=== PATIENT | female | born 1950 | race Caucasian/White ===

== ENCOUNTER 2018-04-16 08:13 | Emergency (ER) | payer MEDICARE ==
[~2018-04-16] VITALS: Ht 165.1 cm; Wt 86.0 kg
[~2018-04-16 08:13] MED LIST: ATELVIA PO; CALCIUM600 M1 OR; CITALOPRAM10 MG OR; ETODOLAC400 MG OR; FENOFIBRATE160 MG PO; FLUDROCORT0.1 MG OR; FORTEO750 MG/3 M SC; HYDROCORTISONE5 MG OR; LOPID600 MG OR; LYRICA150 MG OR; MEVACOR10 MG PO; MULTIVITAM10 OR; OMEGA 31200 MG OR; PREDNISONE5 MG PO; PRILOSEC20 MG PO; SYNTHROID150 MCG OR; SYNTHROID75 MCG OR; TERBINAFINE250 MG PO; VITAMIN D50000 UN1 OR; VITAMIN E100 UNI1 OR
[2018-04-16] MEDS ORDERED: METFORMIN500 MG PO (09:04)
[2018-04-16] MEDS ORDERED: AMOX/K CLAV875 M1 PO (09:14)
[2018-04-16 09:52] VITALS: BP 142/74
== END 2018-04-16 09:52 | disposition home or self-care (01) ==
LOC: ED 08:13
DX: S61.051A Open bite of right thumb without damage to nail, initial encounter (principal); L03.011 Cellulitis of right finger; E27.1 Primary adrenocortical insufficiency; I35.8 Other nonrheumatic aortic valve disorders; W55.01XA Bitten by cat, initial encounter; Y93.89 Activity, other specified; Y92.009 Unspecified place in unspecified non-institutional (private) residence as the place of occurrence of the external cause; Y99.9 Unspecified external cause status

== ENCOUNTER 2019-04-29 | Emergency (ER) | payer MEDICARE ==
[~2019-04-29] MED LIST changes: +AMOX/K CLAV875 M1 PO; +METFORMIN500 MG PO
== END 2019-04-30 02:45 | disposition home or self-care (01) ==
DX: S70.02XA Contusion of left hip, initial encounter (principal); W18.39XA Other fall on same level, initial encounter; Y93.89 Activity, other specified